=== PATIENT | male | born 1940 | race Caucasian/White ===

== ENCOUNTER 2016-09-06 18:56 | Emergency (ER) | payer MEDICARE, OTHER ==
[2016-09-06] MEDS ORDERED: ONDANSETRON HCL/PF 4 MG/ 2ML VIAL ONE (19:10)
[2016-09-06] MEDS ORDERED: MORPHINE SULFATE 2 MG/ML DISP.SYRIN ONE (19:10)
[2016-09-06] MEDS ORDERED: Lidocaine 1% 5ml(IM or SUTURE)(PAIN CLINIC) ONE ×2 (19:16→19:33)
[2016-09-06] MEDS: ONDANSETRON HCL/PF 4 MG/ 2ML VIAL IM ONE (19:33)
[2016-09-06] MEDS: MORPHINE SULFATE 10 MG/ML AMP IVP ONE (19:33)
[2016-09-06] MEDS ORDERED: DIPH,PERTUSS(ACELL),TET VAC/PF 0.5 ML DISP.SYRIN IM ONE (20:04)
[2016-09-06] MEDS: DIPH,PERTUSS(ACELL),TET VAC/PF 0.5 ML DISP.SYRIN IM ONE (20:29)
[2016-09-06] MEDS: CEPHALEXIN 250 MG CAPSULE PO ONE (20:38)
[2016-09-06 20:41] VITALS: BP 132/81
--- NOTE | 2016-09-06 20:49 | ED Physician Documentation ---
General Adult - HISTORIAN Historian: patient - HPI Stated Complaint: laceration L hand Chief Complaint: General Adult Onset: minutes Timing: still present Severity: moderate Further Comments: yes (Pt is a 75 yo male who sustained lacerations of his L hand while using a skill saw when the board he was cutting became unbalanced.) - ROS CONST: no problems EYES/ENT: none CVS/RESP: none GI/: none MS/SKIN/LYMPH: other (lacerations L hand) - PAST HX Past History: hypertension Allergies/Adverse Reactions: Allergies Allergy/AdvReac Type Severity Reaction Status Date / Time histoplasmin [Histoplasmin] Allergy Verified 09/06/16 19:01 Home Medications: Ambulatory Orders Medication Instructions Recorded Etodolac [Lodine] 300 mg PO D 08/21/13 Ipratropium/Albuterol Sulfate 4 mg INH QID 08/21/13 [Combivent Respimat Inhal [place]] Ranitidine HCl [Zantac] 300 mg PO BID 08/21/13 traMADol HCL [Ultram] 50 mg PO D 08/21/13 Azithromycin [Zithromax] 250 mg PO QD #3 tablet 08/25/13 Levofloxacin [Levaquin] 500 mg PO D #7 tablet 08/25/13 Cephalexin [Keflex] 500 mg PO Q8H #21 capsule 09/06/16 - SOCIAL HX Smoking History: quit greater than 1 year - FAMILY HX Family History: No - VITAL SIGNS Vital Signs: Vital Signs Temp Pulse Resp BP Pulse Ox 161/97 08/25/13 10:00 - REVIEWED ASSESSMENTS Nursing Assessment Reviewed: Yes Vitals Reviewed: Yes Procedures Wound Location: upper extremity (L hand laceration, base of thumb 2.5 cm; sensation & movement intact. See progress section.) Wound's Depth, Shape: contused tissue Wound Explored: clean Betadine Prep?: No (Tao-buddy) Anesthesia: 1% Lidocaine Volume of Anesthetic: 4 cc Wound Debrided: minimal Wound Repaired With: sutures Suture Size/Type: 4:0, nylon Number of Sutures: 5 Layer Closure?: No Sterile Dressing Applied?: Yes Progress - Progress Progress: Laceration # 2 2 cm hypothenar eminence, L hand, superficial. Shakilah-buddy Lidocaine 3 cc Closed with # 4, 4-0 nylon sutures. Dressing applied Keflex 500 mg po in ER. Rx Keflex 500 mg. Take one tablet every 8 hrs for 5 days. Apply topical antibiotic such as Neosporin, Bacitracin or Triple Antibiotic to sutured areas twice daily for 7 days. Follow up with primary provider for suture removal in 5 to 7 days. General Adult Physical Exam - PHYSICAL EXAM GENERAL APPEARANCE: moderate distress EENT: eye inspection normal NECK: normal inspection, supple RESPIRATORY: no resp distress, chest non-tender, breath sounds normal CVS: reg rate & rhythm, heart sounds normal BACK: normal inspection SKIN: other (Laceration base of L thumb, irregular 2.5 cm; no loss of movement or sensation; laceration 2 cm, superficial hypothenar eminence.) EXTREMITIES: other (Laceration base of L thumb, irregular 2.5 cm; no loss of movement or sensation; laceration 2 cm, superficial hypothenar eminence.) NEURO: oriented X3, motor nml, sensation nml Discharge Clincal Impression: lacerations, L hand Prescriptions: Cephalexin [Keflex] 500 mg PO Q8H #21 capsule Referrals: Primary Doctor,No [Primary Care Provider] - Home Medications: Ambulatory Orders Etodolac [Lodine] 300 mg PO D 08/21/13 Ipratropium/Albuterol Sulfate [Combivent Respimat Inhal [place]] 4 mg INH QID 12/25 Ranitidine HCl [Zantac] 300 mg PO BID 08/21/13 traMADol HCL [Ultram] 50 mg PO D 08/21/13 Azithromycin [Zithromax] 250 mg PO QD #3 tablet 08/25/13 Levofloxacin [Levaquin] 500 mg PO D #7 tablet 08/25/13 Cephalexin [Keflex] 500 mg PO Q8H #21 capsule 09/06/16 Condition: Good Disposition: 01 HOME, SELF-CARE Decision to Admit: NO Decision Time: 20:11
== END 2016-09-06 20:39 | disposition home or self-care (01) ==
LOC: ED 18:56
DX: S61.412A Laceration without foreign body of left hand, initial encounter (principal); X58.XXXA Exposure to other specified factors, initial encounter; Y93.9 Activity, unspecified; Y99.9 Unspecified external cause status
CPT/HCPCS: 90715; J2270; J2405; 12001; 90471; 96372; 99283; J7030